=== PATIENT | female | born 1960 | race African-American/Black ===

== ENCOUNTER 2018-11-01 15:41 | Emergency (ER) | payer OTHER ==
[~2018-11-01] VITALS: Ht 160 cm; Wt 77.1 kg
[~2018-11-01 15:41] MED LIST: AMLODIPINE BESY10 MG PO; BENAZEPRIL HCL20 MG PO; FARXIGA10 MG PO; FLEXERIL PO; HYDROCODONE-AP1 EAC6 PO; LANTUS100 UNIT/M SUBQ; LYRICA150 MG PO; MYRBETRIQ25 MG PO; NOVOLOG100 UNIT/1 SUBQ; PHENTERMINE H37.5 M1 PO
[2018-11-01] MEDS ORDERED: NABUMETONE 750750 M1 PO (16:58)
[2018-11-01 17:10] VITALS: BP 157/99
== END 2018-11-01 17:18 | disposition home or self-care (01) ==
LOC: M.ERS 15:41
DX: M65.341 Trigger finger, right ring finger (principal); I10 Essential (primary) hypertension; E11.9 Type 2 diabetes mellitus without complications; Z90.710 Acquired absence of both cervix and uterus; Z79.4 Long term (current) use of insulin